=== PATIENT | male | born 1960 | race Caucasian/White ===

== ENCOUNTER → 2016-05-30 | Outpatient (CLI) | payer BC | END | disposition home or self-care (01) | LOC: GMAJ 10:44 | PROVIDERS: ATTEND Family Medicine | DX: R22.1 Localized swelling, mass and lump, neck (principal) ==

== ENCOUNTER → 2016-05-31 | Outpatient (CLI) | payer BC ==
--- NOTE | 2016-05-31 12:16 | CT ---
EXAM DESCRIPTION: Soft Tissue Neck CLINICAL HISTORY: 56 years,Male,NECK MASS COMPARISON: None TECHNIQUE: Multiple axial helical tomographic images obtained of the neck and the reconstruct sagittal plane with IV contrast. FINDINGS: There is a large cystic-appearing mass demonstrated just to the left of midline at the level of the thyroid cartilage and between the thyroid cartilage and hyoid bone. It measures about 3.2 cm in width by 2.8 AP by 4.2 in height. It does insinuate between the midline of the upper thyroid cartilage in travels superiorly to just behind the hyoid bone from just right of midline all way to the left mid aspect of the hyoid region. There are bilateral lymph nodes seen in the anterior cervical chains but they all appear benign a fatty hilum largest up to 1.10 size on the left at the level of the mandible but most are well below 1 cm in size. And some sub-5 mm lymph nodes in the submandibular region. The parotid and submandibular glands thyroid demonstrates a possible mass left lobe measuring 2.4 cm in size. That enhances only slightly less than the surrounding thyroid.. The parapharyngeal and pharyngeal mucosal spaces appear unremarkable. Lung apices and superior mediastinum unremarkable. The included paranasal sinuses unremarkable. And the cervical spine appears unremarkable for age. There are lucencies about the left mandibular first and second molar and several teeth are missing in the mandible and all the teeth in the maxilla. There is also large amount of debris in both external auditory canals. IMPRESSION: There is a cystlike structure which is mostly to the left of midline anterior to the thyroid cartilage. But it may have originated from the midline just above the thyroid cartilage. It does also extend behind the mid to the left hyoid bone. 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 However the patient is rather old for presentation for this entity. Therefore cannot exclude carcinoma such as papillary thyroid carcinoma. Or necrotic lymph node. 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 Probable Mass demonstrated left thyroid recommend ultrasound. Electronically signed by: Toby Yadav MD 05/31/2016 12:15 PM CDT
== END | disposition home or self-care (01) ==
LOC: CT 09:06
PROVIDERS: ATTEND Family Medicine
DX: R22.1 Localized swelling, mass and lump, neck (principal)